=== PATIENT | female | born 1945 | race Hispanic/Latino ===

== ENCOUNTER 2021-08-29 08:41 | Outpatient (RCR) | payer OTHER ==
[~2021-08-29 08:41] MED LIST: ASPIRIN EC81 MG PO; AVALIDE PO; GLIMEPIRIDE PO; METFORMIN PO; MOTRIN IB200 MG PO; ONE A DAY PO; PROTONIX PO; PROVASTATIN PO; ULTRAM 50MG50 MG PO
== END 2021-09-03 ==
LOC: PT 08:41
PROVIDERS: ATTEND Specialist
DX: M17.0 Bilateral primary osteoarthritis of knee (principal)

== ENCOUNTER → 2023-11-19 | Day surgery (SDC) | payer BC, OTHER ==
[~2023-11-19] MED LIST changes: +FAMOTIDINE20 MG PO; +FENTANYL CITRATE/PF 100MCG/2 ML INJ ONE; +GLIMEPIRIDE2 MG PO; +HYDROCHLOROTHIA25 MG PO; +IRBESARTAN300 MG PO; +LACTATED RINGER'S 1,000 ML ONE; +METFORMIN HCL500 MG PO; +MIDAZOLAM HCL 2 MG/2 ML VIAL ONE; +OR PHACO EYE KIT ONE; +PRAVASTATIN SOD20 MG PO; +PREOP PHACO EYE KIT ONE; +VERAPAMIL ER120 MG PO; +VITAMIN D31 ML
[2023-11-19 10:14] VITALS: TEMP 97
[2023-11-19 10:45] VITALS: BP 152/79; PULSE 74; RESP 17; O2SAT 98
== END | disposition home or self-care (01) ==
LOC: OR 06:38
PROVIDERS: ATTEND Ophthalmology
DX: H25.12 Age-related nuclear cataract, left eye (principal); I11.0 Hypertensive heart disease with heart failure; I50.9 Heart failure, unspecified; E78.5 Hyperlipidemia, unspecified; E11.9 Type 2 diabetes mellitus without complications; Z79.84 Long term (current) use of oral hypoglycemic drugs; Z79.899 Other long term (current) drug therapy
CPT/HCPCS: 36415; 66984; 82948; J2250; J3010; J7121; V2788

== ENCOUNTER 2024-12-20 01:38 | Emergency (ER) | payer BC, MEDICARE ==
[~2024-12-20] VITALS: Ht 165.1 cm; Wt 83.5 kg
[~2024-12-20 01:38] MED LIST changes: -FENTANYL CITRATE/PF 100MCG/2 ML INJ ONE; -LACTATED RINGER'S 1,000 ML ONE; -MIDAZOLAM HCL 2 MG/2 ML VIAL ONE; -OR PHACO EYE KIT ONE; -PREOP PHACO EYE KIT ONE
[2024-12-20 01:42] VITALS: TEMP 98.9
[2024-12-20] MEDS: IBUPROFEN 600 MG TAB PO STA (02:04)
[2024-12-20 03:33] VITALS: PULSE 65; RESP 20; O2SAT 100
== END 2024-12-20 03:31 | disposition home or self-care (01) ==
LOC: ER 01:40
DX: R51.9 Headache, unspecified (principal); R20.2 Paresthesia of skin; I10 Essential (primary) hypertension; E11.9 Type 2 diabetes mellitus without complications
CPT/HCPCS: 70450; 99283